=== PATIENT | male | born 1950 | race Caucasian/White ===

== ENCOUNTER 2017-11-08 09:47 | Inpatient (IN) | payer OTHER ==
[~2017-11-08] VITALS: Ht 170.2 cm; Wt 86.2 kg
[2017-11-17] MEDS ORDERED: GABAPENTIN600 MG PO (14:39)
[2017-11-17] MEDS ORDERED: CARVEDILOL3.125 MG PO (14:40)
[2017-11-17] MEDS ORDERED: COZAAR100 MG PO (14:40)
[2017-11-17] MEDS ORDERED: AMLODIPINE BESYL5 MG PO (14:40)
[2017-11-17] MEDS ORDERED: ZOCOR20 MG PO (14:41)
[2017-11-17] MEDS ORDERED: PROBIOTIC1 EAC1 PO (14:41)
[2017-11-24] MEDS ORDERED: COLACE100 MG PO (11:44)
[2017-11-24] MEDS ORDERED: PERCOCET 5-3251 EACH PO (11:48)
[2017-11-24] MEDS ORDERED: CLONAZEPAM1 MG PO (11:48)
== END 2017-11-25 12:43 | disposition home or self-care (01) | DRG 472 ==
LOC: PED 11-24 04:30 → O/R 11-24 04:30 → SURG 11-24 10:00 → PED 11-24 13:23
PROVIDERS: Orthopaedic Surgery Orthopaedic Surgery of the Spine
PROC: 0RT30ZZ Resection of Cervical Vertebral Disc, Open Approach (ICD-10-PCS; 2017-11-24)
PROC: 0RG20A0 Fusion of 2 or more Cervical Vertebral Joints with Interbody Fusion Device, Anterior Approach, Anterior Column, Open Approach (ICD-10-PCS; principal; 2017-11-24 10:00)
DX: M50.01 Cervical disc disorder with myelopathy, high cervical region (principal); M47.12 Other spondylosis with myelopathy, cervical region; I10 Essential (primary) hypertension; M50.022 Cervical disc disorder at C5-C6 level with myelopathy

== ENCOUNTER 2017-12-05 03:25 | Emergency (ER) | payer OTHER ==
[~2017-12-05] VITALS: Ht 170.2 cm; Wt 83.5 kg
[~2017-12-05 03:25] MED LIST: AMLODIPINE BESYL5 MG PO; CARVEDILOL3.125 MG PO; CLONAZEPAM1 MG PO; COLACE100 MG PO; COZAAR100 MG PO; GABAPENTIN600 MG PO; PERCOCET 5-3251 EACH PO; PROBIOTIC1 EAC1 PO; ZOCOR20 MG PO
== END 2017-12-05 06:46 | disposition home or self-care (01) ==
LOC: ER 03:25
DX: S00.03XA Contusion of scalp, initial encounter (principal); S10.83XA Contusion of other specified part of neck, initial encounter; W01.198A Fall on same level from slipping, tripping and stumbling with subsequent striking against other object, initial encounter; Y93.89 Activity, other specified; Y92.018 Other place in single-family (private) house as the place of occurrence of the external cause; Y99.8 Other external cause status

== ENCOUNTER 2018-03-19 10:21 | Emergency (ER) | payer OTHER ==
[~2018-03-19] VITALS: Ht 152.4 cm; Wt 83.5 kg
== END 2018-03-19 13:37 | disposition home or self-care (01) ==
LOC: ER 10:21
DX: M62.838 Other muscle spasm (principal)

== ENCOUNTER → 2018-03-26 | Emergency (ER) | payer OTHER ==
[~2018-03-26] VITALS: Ht 170.2 cm; Wt 83.5 kg
== END | disposition designated cancer center or children's hospital (05) ==
LOC: ER 10:51
DX: N18.9 Chronic kidney disease, unspecified (principal); R41.82 Altered mental status, unspecified; E11.649 Type 2 diabetes mellitus with hypoglycemia without coma; M25.511 Pain in right shoulder; R42 Dizziness and giddiness